=== PATIENT | female | born 1990 | race Caucasian/White ===

== ENCOUNTER 2024-06-16 10:55 | Emergency (ER) | payer OTHER, SELFPAY ==
[2024-06-16 10:58] VITALS: BP 134/74
--- NOTE | 2024-06-16 11:38 | ED.GENMED ---
History of Present Illness
General
Chief Complaint: Abdominal Symptoms
Source: patient
Exam Limitations: none
Time Seen by Provider: 06/16/24 11:11
History of Present Illness
History of Present Illness:
34-year-old female presents with headache consistent with her prior migraines with associated nausea and vomiting photosensitivity. 3 episodes of vomiting into which she noticed a large amount of blood when she vomited was red blood liquid in
nature she estimates a half a cup to a cup worth of blood. She denies abdominal pain. She drink alcohol or use NSAIDs regularly. She drinks a couple coffee a day. She has been on rizatriptan for the past month. She recently tried magnesium
through her holistic doctor for her headaches. Headache is right-sided behind her right eye which is typical and gradual in onset. She denies any sudden onset headaches neck pain or fever.
Phy Exam
Physical Exam
Physical Exam:
General: Well-appearing female no acute respiratory distress
HEENT: Normocephalic atraumatic
Heart: Regular rate and rhythm no murmur
Lungs: Clear no wheeze
Neurologic exam: Alert and oriented pupils equal round reactive to light extract motion intact good strength and sensation to the upper and lower extremities
Musculoskeletal exam: No cervical spine tenderness
Abdomen is soft nontender nondistended no guarding rebound normal bowel sound
Course
Orders/Labs/Results
Orders:
Orders
06/16/24 11:28
0.9% Sodium Chloride 1000 ml [Nss] 1,000 ml IV BOLUS
Diphenhydramine [Benadryl] 25 mg IV NOW STA
Prochlorperazine [Compazine] 10 mg IV NOW STA
06/16/24 11:29
CT Head W/o Iv Contrast Urgent
Comment:
Reason For Exam: headache
Test Result ONCE
06/16/24 11:42
Complete Blood Count/With Diff Urgent
Comprehensive Metabolic Panel Urgent
HCG, Serum Qualitative Screen Urgent
Lipase Urgent
Abnormal Lab Results
06/16/24
11:42
Absolute Neuts (auto) 7.8 H 10^3/uL
(1.4-6.5)
Absolute Lymphs (auto) 0.8 L 10^3/uL
(1.2-3.4)
Neutrophils % 87.5 H %
(42.2-75.2)
Lymphocytes % 9.2 L %
(20.5-51.1)
06/16/24 11:42
06/16/24 11:42
Vital Signs
Initial and Last Documented VS:
Initial Vital Signs
Temp Pulse Resp BP Pulse Ox
97.3 F 97 16 134/74 98
06/16/24 10:58 06/16/24 10:58 06/16/24 10:58 06/16/24 10:58 06/16/24 10:58
Last Documented Vital Signs
Temp Pulse Resp BP Pulse Ox
97.3 F 88 15 134/74 100
06/16/24 10:58 06/16/24 11:45 06/16/24 11:30 06/16/24 10:58 06/16/24 11:45
MDM/Problems Addressed
Differential Diagnosis Includes:
Headache consistent with prior migraines. She does not describe sudden onset headache do not suspect intracranial hemorrhage. She is vomiting. She did have some blood with her vomit as well. Patient has never had any imaging studies of her head
and his headaches are fairly new. Will order CT of the head. I suspect blood in the vomit was like retching. Will check labs and observe for any further bleeding.
*Critical Care Note
Total Time (30-74mins, 75-104mins- exclusive of procedures): Not Applicable
Update Note
Update Note:
Patient headache is improved. CT negative. Patient ambulated to the bath difficulty. Labs reviewed without significant finding. I suspect migraine headache causing vomiting and vomiting and retching causing potential esophageal irritation and
bleeding. No signs of excessive blood loss on blood work. Stable for discharge.
ED Attending Note
-
Portions of this chart may have been created with voice recognition software.� Occasional wrong word or��sound alike� substitutions may have occurred due to the inherent limitations of voice recognition software.
Discharge Plan
Departure
Patient Disposition: Home (Routine Discharge)
Date of Disposition: 06/16/24
Time of Disposition: 14:26
Patient with high blood pressure during this ER visit?: No
Discharge Problem:
Headache
Instructions: Migraine in adults
Prescriptions:
No Action
Vitamin Tablet
1 tab PO DAILY
ascorbic acid (vitamin C) [Vitamin C] 500 mg Tablet
500 mg PO DAILY
sennosides-docusate sodium [Stool Softener-Stimulant Laxat] 8.6-50 mg Tablet
1 tab PO DAILYPRN PRN (Reason: constipation) Qty: 0 0RF
ibuprofen 600 mg Tablet
600 mg PO Q6HPRN PRN (Reason: cramps) 10 Days Qty: 40 0RF
simethicone 80 mg Tablet,Chewable
80 mg PO TIDPRN PRN (Reason: flatulence) Qty: 0 0RF
Referrals:
Reanna Kruse PA [Family Provider] -
Roger Corado MD [Active] -
Activity Restrictions/Additional Instructions:
Rest. Drink plenty fluids. Continue with your typical migraine medications. Return here for worsening symptoms otherwise consider following up with neurology
Interventions
Interventions:
*Risk Screen - Suicide Last Done: 06/16/24 10:58
*General Assessment Last Done: 06/16/24 11:58
*Neglect/Abuse Screening Last Done: 06/16/24 10:58
*ED COVID-19 Vaccine History Last Done: 06/16/24 11:49
WQ-Ldoyjz-Ymwgicfjmy Assessment Last Done: 06/16/24 11:52
Discharge Date and Time
Print Language: CUBAN
[2024-06-16] MEDS: BENADRYL 25 MG IV (11:42)
[2024-06-16] MEDS: NSS 1000 IV (11:44)
[2024-06-16] MEDS: COMPAZINE 10 MG IV (11:44)
[2024-06-16 11:48] VITALS: BMI 25.5
[2024-06-16 11:52] LABS: % Basophils 0.1 % (0-2); % Eosinophils 0.1 % (0-6); % Immature Granulocytes 0.3 % (0-0.5); % Lymphocytes 9.2 % (20.5-51.1); % Monocytes 2.8 % (1.7-9.3); % Neutrophils 87.5 % (42.2-75.2); Absolute Lymphocytes 0.8 10^3/uL (1.2-3.4); Absolute Monocytes 0.3 10^3/uL (0.1-0.6); Absolute Neutrophils 7.8 10^3/uL (1.4-6.5); Hematocrit 37.1 % (37.0-47.0); Hemoglobin 13.3 g/dL (12.0-16.0); Mean Corp Hgb Conc. 35.8 g/dL (33.0-37.0); Mean Corpuscular Hgb 30.2 pg (27.0-31.0); Mean Corpuscular Volume 84.1 fL (81.0-99.0); Mean Platelet Volume 9.7 fL (7.4-10.4); Nucleated Red Blood Cells % 0 %; Platelet Count 258 10^3/uL (130-400); Red Blood Cell Count 4.41 10^6/uL (4.20-5.40); Red Cell Dist. Width 12.4 % (11.5-14.5); White Blood Cell Count 8.9 10^3/uL (4.8-10.8)
[2024-06-16 12:01] LABS: HCG, Serum Qualitative Screen Negative
[2024-06-16 12:05] LABS: ALT (SGPT) 18 U/L (0-35); AST (SGOT) 23 U/L (14-36); Albumin 4.7 g/dl (3.5-5.0); Alkaline Phosphatase 64 U/L (38-126); Blood Urea Nitrogen 13 mg/dl (7-17); Calcium 9.8 mg/dl (8.4-10.2); Carbon Dioxide 23 mmol/L (22-30); Chloride 102 mmol/L (98-107); Estimated Creatinine Clearance 99 ml/min; Glucose 98 mg/dl (70-99); Potassium 3.8 mmol/L (3.5-5.1); Sodium 139 mmol/L (135-145); Total Bilirubin 0.6 mg/dl (0.2-1.3); Total Protein 6.9 g/dl (6.3-8.2); eGFR > 60.00
[2024-06-16 12:21] LABS: Lipase 83 U/L (23-300)
== END 2024-06-16 15:48 | disposition home or self-care (01) ==
LOC: EMR 10:55
PROVIDERS: Physician Assistant; EMERGENCY PHYSICIAN Student in an Organized Health Care Education/Training Program; FAMILY PHYSICIAN Physician Assistant Medical
DX: R51.9 Headache, unspecified (principal); K92.0 Hematemesis
CPT/HCPCS: 96374; 96375; 96361; 99284; 70450; 80053; 83690; 84703; 85025

== ENCOUNTER → 2025-06-18 12:54 | Outpatient (REF) | payer BC, SELFPAY | LOC: RAD 12:54 | PROVIDERS: ATTENDING PHYSICIAN Obstetrics & Gynecology; FAMILY PHYSICIAN Physician Assistant Medical | DX: O26.851 Spotting complicating pregnancy, first trimester (principal) | CPT/HCPCS: 76801; 76817 ==